=== PATIENT | female | born 1960 | race Hispanic/Latino ===

== ENCOUNTER → 2018-08-23 | Outpatient (CLI) | payer OTHER | END | disposition home or self-care (01) | LOC: RAH 15:18 | PROVIDERS: ATTEND Internal Medicine Nephrology | DX: Z13.6 Encounter for screening for cardiovascular disorders (principal) | CPT/HCPCS: 75571 ==

== ENCOUNTER → 2020-11-26 | Outpatient (CLI) | payer BC, OTHER ==
[~2020-11-26] MED LIST: GADOTERATE MEGLUMINE 10 MMOL/20 ML VIAL IV ONE
== END | disposition home or self-care (01) ==
LOC: RAH 11:19
PROVIDERS: ATTEND Physical Medicine & Rehabilitation
DX: M43.27 Fusion of spine, lumbosacral region (principal); M47.26 Other spondylosis with radiculopathy, lumbar region; R10.2 Pelvic and perineal pain; R60.9 Edema, unspecified
CPT/HCPCS: 72197; A9575

== ENCOUNTER 2023-09-01 14:44 | Emergency (ER) | payer BC, OTHER ==
[~2023-09-01] VITALS: Ht 154.9 cm; Wt 64.9 kg
[2023-09-01 15:23] VITALS: BP 147/106; PULSE 66; RESP 18; O2SAT 98
[2023-09-01] MEDS: MORPHINE 4 MG SYG IVP ONE (16:07)
[2023-09-01] MEDS: 0.9%NACL 1000ML 1,000 ML IV ONE ×2 (16:07→18:38)
[2023-09-01] MEDS: ONDANSETRON 4MG INJ IVP ONE (16:07)
[2023-09-01 16:08] LABS: APPEARANCE,URINE CLOUDY (CLEAR); BILIRUBIN,URINE NEGATIVE (NEGATIVE); COLOR,URINE LIGHT-YELLOW (YELLOW); GLUCOSE, URINE (UA) NEGATIVE (NEGATIVE); KETONES,URINE NEGATIVE (NEGATIVE); LEUKOCYTE ESTERASE ,URINE 250 Leu/uL (NEGATIVE); NITRATE,URINE NEGATIVE (NEGATIVE); OCCULT BLOOD,URINE LARGE (NEGATIVE); PROTEIN,URINE NEGATIVE (NEGATIVE); UROBILINOGEN,URINE 0.2 mg/dL (0.2-1.0)
[2023-09-01 16:09] LABS: ADD UA MICROSCOPIC YES
[2023-09-01 16:12] LABS: BASOPHILS # (AUTO) 0.02 K/uL (0.00-0.20); BASOPHILS % (AUTO) 0.2 % (0.0-5.0); HEMATOCRIT 42.1 % (36-48); IMMATURE GRANULOCYTE ABSOLUTE 0.06 K/uL (0-1); LYMPHOCYTES # (AUTO) 0.7 K/uL (1.0-4.8); LYMPHOCYTES % (AUTO) 7.4 % (21.0-51.0); MEAN CORPUSCULAR HEMOGLOBIN 31.7 pg (27.0-33.0); MEAN CORPUSCULAR HGB CONC 33.7 g/dL (32.0-36.0); MONOCYTES # (AUTO) 0.1 K/uL (0.1-1.0); MONOCYTES % (AUTO) 0.7 % (3.0-13.0); NEUTROPHILS # (AUTO) 8.8 K/uL (1.8-7.7); NEUTROPHILS % (AUTO) 91.1 % (40.0-77.0); PLATELET COUNT (AUTO) 203 K/uL (130-400); RED BLOOD CELL COUNT(AUTO) 4.48 MIL/uL (4.00-5.50); RED CELL DISTRIBUTION WIDTH 13.2 % (11.0-15.5); WHITE BLOOD COUNT (AUTO) 9.7 K/uL (4.8-10.8)
[2023-09-01 16:20] LABS: BACTERIA,URINE RARE /HPF (None Seen); RBC,URINE 51-100 /HPF (0-1); SQUAMOUS EPITHELIAL CELL,UR FEW /HPF (0-2); WBC,URINE 26-50 /HPF (0-1)
[2023-09-01 16:22] LABS: CREATININE 0.9 mg/dL (0.5-1.0); POTASSIUM 3.7 mmol/L (3.5-5.1)
[2023-09-01 16:27] LABS: BILIRUBIN,TOTAL 0.7 mg/dL (0.2-1.0); TOTAL PROTEIN, SERUM 7.4 g/dL (6.0-8.3)
[2023-09-01] MEDS: KETOROLAC 30MG VIAL (30MG/ML) IVP ONE (18:37)
[2023-09-01] MEDS ORDERED: ONDA4TAB10 PO (18:59)
[2023-09-01] MEDS ORDERED: SULF1TAB42 PO (18:59)
[2023-09-01] MEDS: SULFAMETHOX-TMP DS 800/160 TAB PO SCH (19:35)
== END 2023-09-01 19:44 | disposition home or self-care (01) ==
LOC: EDH 14:44
DX: N23 Unspecified renal colic (principal); I10 Essential (primary) hypertension; Z87.440 Personal history of urinary (tract) infections; Z87.442 Personal history of urinary calculi; Z98.890 Other specified postprocedural states; Z88.1 Allergy status to other antibiotic agents; Z88.8 Allergy status to other drugs, medicaments and biological substances
CPT/HCPCS: 99284; 96374; 96361; 96375; 80053; 85025; 87088; 81001; 36415; J7030 ×2; J2405; J2270; J1885

== ENCOUNTER → 2025-02-03 | Outpatient (CLI) | payer OTHER ==
[~2025-02-03] MED LIST changes: -GADOTERATE MEGLUMINE 10 MMOL/20 ML VIAL IV ONE; +IOHEXOL-350 75 ML VIAL IV ONE; +ONDA-243 PO; +SULF1TAB42 PO
--- NOTE | 2025-02-03 19:57 | HMCIMG ---
EXAM: CT Abdomen and Pelvis with Intravenous Contrast CLINICAL HISTORY: 64-year-old female with left lower quadrant pain TECHNIQUE: Axial computed tomography images of the abdomen and pelvis with intravenous contrast. Dose reduction technique was used including one or more of the following: automated exposure control, adjustment of mA and kV according to patient size, and/or iterative reconstruction. CONTRAST: Omniqapue 350, 75 ml COMPARISON: MR pelvis dated 11/26/2020, 11:39 am. FINDINGS: LUNG BASES: Atelectasis. No masses. LIVER: Unremarkable. GALLBLADDER AND BILE DUCTS: Cholecystectomy clips. No ductal dilation. PANCREAS: Unremarkable. SPLEEN: Unremarkable. ADRENAL GLANDS: Unremarkable. KIDNEYS, URETERS, AND BLADDER: Symmetric excretion of contrast in both kidneys. Small left renal pelvis stone. No hydronephrosis. No ureteral or bladder calculi. STOMACH AND BOWEL: No obstruction. No wall thickening. No CT evidence of colitis or acute diverticulitis. APPENDIX: No CT evidence for appendicitis. PERITONEUM: No free fluid. No free air. LYMPH NODES: No lymphadenopathy. REPRODUCTIVE: Hysterectomy changes. Pelvis findings are similar to MR pelvis dated 11/26/2020, 11:39 am. VASCULATURE: No aortic aneurysm. ABDOMINAL WALL AND SOFT TISSUES: Extensive postsurgical changes lower lumbar spine with a moderate to large fluid collection in the midline posterior surgical bed overall measuring 5.6 cm x 6.8 cm x 13.4 cm. BONES: Fixation hardware Lumbar spine seen. No fracture or suspicious osseous abnormality. IMPRESSION: 1. Extensive postsurgical changes in the lower lumbar spine with a moderate to large fluid collection in the midline posterior surgical bed, measuring 5.6 x 6.8 x 13.4 cm, slightly increased to MR pelvis dated 11/26/2020 differentials includer seroma vs less likley abcess formation. 2. Small left renal pelvis stone. /[place]
== END | disposition home or self-care (01) ==
LOC: RAH 10:22
PROVIDERS: ATTEND Internal Medicine Gastroenterology
DX: N20.0 Calculus of kidney (principal); J98.11 Atelectasis; R10.32 Left lower quadrant pain; Z90.710 Acquired absence of both cervix and uterus; Z90.49 Acquired absence of other specified parts of digestive tract
CPT/HCPCS: 74178; Q9967

== ENCOUNTER 2025-04-18 22:21 | Emergency (ER) | payer OTHER ==
[~2025-04-18] VITALS: Ht 167.6 cm; Wt 62.1 kg
--- NOTE | 2025-04-18 22:29 | NUR ---
UA CUP PROVIDED
--- NOTE | 2025-04-18 23:59 | ERN ---
ED Note History of Present Illness Stated Complaint: LEFT EYE SENSITIVITY AND PAIN Chief Complaint: Eye Problems Time Seen by MD: 22:49 Dictation: This is a 64-year-old female who came into the emergency room complaining of photosensitivity of the left eye and transient loss of vision in the left eye. Patient underwent a colonoscopy today by Dr. Cordero and after she woke up her left eye became very sensitive to light and air with pain and she could not see properly. She went home and as symptoms persisted she came into the ER for fu rther evaluation. No trauma it is unclear to the procedural events and the anesthesia details. Patient reported that she was never diagnosed with glaucoma or any eye problems before. Getting headaches off and on but this particular eye pain which is mostly in the left eye and periorbital area is something new to her when she was evaluated in the ER she denied any blurred vision or vision loss. She basically had severe photosensitivity and had close her left eye No fever chills or rigors she did have some watering of the left eye minimal redness of the infra corneal area. Temperature 98.1 pulse 91 respirations 20 blood pressure 155/74 with a pulse oximetry of 98% on room air Chronic medical problems include diabetes mellitus type 2, hypertension, kidney stones and history of neck surgery. patient is on chronic opioids 4 times a day for chronic back pain and neck pain. Allergies: Coded Allergies: cefaclor (Unverified Allergy, Unknown, 09/01/23) levofloxacin (Unverified Allergy, Unknown, 09/01/23) Home Meds Active Scripts Ondansetron (Ondansetron Odt) 4 Mg Tab.rapdis, 4 MG PO TIDP PRN for NAUSEA, #30 TAB 0 Refills Prov:TAJ MEDINA MD 09/01/23 Sulfamethoxazole/Trimethoprim (Bactrim Ds Tablet) 800 Mg-160 Mg Tablet, 1 TAB PO BID for 7 Days, #14 TAB 0 Refills Prov:TAJ MEDINA MD 09/01/23 Past Medical History Past Medical History: Diabetes-Type II, Hypertension, Other Additional Past Medical Hx: KIDNEY STONES Surgical History: Other Surgical History Other: NECK SX, BACK Social History: Negative, Lives with family History: Not Applicable RN Note Reviewed/Agreed w/PFSH: Yes Review of System Dictation Constitutional: Negative for fever,chills, and weight loss Eyes: Negative for injury, pain,redness, and discharge positive for transient vision loss/blurred vision in the left eye, pain in the left eye with some watering ENT: Negative for injury,pain or swelling Cardiovascular: Negative for chest pain, palpitations, and edema Respiratory: Negative for shortness of breath, cough, and wheezing, Abdomen/GI: Negative for abdominal pain, nausea, vomiting, diarrhea, and constipation Back: Negative for injury and pain : Negative for injury, bleeding and discharge MS/Extremity: Negative for injury and deformity Skin: Negative for rash, and discoloration Neuro: Negative for headache, weakness, numbness, tingling, and seizure Psych: Negative for suicide ideation, homicidal ideation, and hallucinations Initial Vital Sign VS Vital Signs Date Time Temp Pulse Resp B/P (MAP) Pulse Ox O2 Delivery O2 Flow Rate FiO2 04/18/25 22:23 98.1 91 20 155/74 98 Room Air 04/19/25 01:35 0 21 Physical Exam Dictation General: awake, alert, NAD Head/Face: Normocephalic, atraumatic Eyes: PERRL, EOMI, vision at baseline mild erythema in the infra corneal area, photosensitivity but pupils are equal and reactive ENT: oral cavity clear, TMs clear, no signs of infection Neck: Trachea midline, supple, no nuchal rigidity Cardiovascular: RRR, normal S1/S2, No MRGs, no JVD Respiratory: CTAB, no respiratory distress, No rales or wheezes Abdomen: Soft, non-tender, non-distended, normal bowel sounds, no guarding or rebound. Skin: Warm, dry, normal turgor, no rash MS/Extremity: Pulses equal, no cyanosis, neurovascular intact, FROM Neuro: COAx4, GCS 15, strength 5/5, CN 2-12 intact, normal cerebellar exam, normal gait, Psych: Normal behavior, mood, and affect normal Extremities-trace edema without any palpable cords, Homans sign is negative Results (Laboratory/Radiology) Labs Reviewed?: Yes CT Scan Comment: REASON: amaurosis Fugax ORDERING PHYSICIAN: SOPHY MARTÍNEZ MD PROCEDURE: HEAD WO - CT HEAD/BRAIN W/O CONTRAST EXAM: CT Head Without IV contrast. CLINICAL HISTORY: Amaurosis Fugax TECHNIQUE: Axial computed tomography images of the head/brain without intravenous contrast. COMPARISON: None provided. FINDINGS: BRAIN: No evidence of acute hemorrhage. No mass lesion. No CT evidence for acute territorial infarct. No midline shift or extra-axial collections. VENTRICLES: No hydrocephalus. ORBITS: The orbits are unremarkable. SINUSES AND MASTOIDS: The paranasal sinuses and mastoid air cells are clear. BONES: No fracture. SOFT TISSUES: Unremarkable. IMPRESSION: No evidence of acute hemorrhage. No mass lesion. No CT evidence for acute territorial infarct. Suggested MRI brain for further evaluation, if clinically indicated. /[place] DICTATED BY: ASHLEY PICAKRD Jr., MD DATE: 04/19/25208 ELECTRONICALLY SIGNED BY: ASHLEY PICKARD Jr., MD DATE: 04/19/25208 ED Course ED Course Orders Procedure Category Date Status Time Ct Head/Brain W/O CT 04/18/25 Resulted Contrast 23:04 Tetracaine Hcl PHA 04/19/25 Complete (Pontocaine 0.5% 02:00 Morphine 4mg Syg PHA 04/19/25 Complete (Morphine 4mg Syg) 02:00 Fluorescein Sodium PHA 04/19/25 Complete (Pacss-L-Kvtqo At) 02:41 Fluorescein Sodium PHA 04/19/25 In Process (Ooalb-M-Wdpps At) 03:00 Methylprednisolone PHA 04/19/25 Complete Succ 125mg (Solu-Medr 03:30 Current Medications Medications (Trade) Dose Ordered Sig/Tonya Route PRN Reason Start Time Stop Time Status Last Admin Dose Admin Fluorescein Sodium (Ipygk-C-Wdgtw At) 1 strip ONCE OP 04/19/25 03:00 05/19/25 02:59 04/19/25 02:55 Fluorescein Sodium (Aaeob-N-Zuapz At) 1 strip STK-MED ONCE .ROUTE 04/19/25 02:41 04/19/25 02:41 DC Methylprednisolone Sodium Succinate (Solu-medROL 125MG) 125 mg ONCE ONCE IM 04/19/25 03:30 04/19/25 03:31 DC 04/19/25 04:08 Morphine Sulfate (morPHINE 4MG SYG) 4 mg ONCE ONCE IM 04/19/25 02:00 04/19/25 02:01 DC 04/19/25 02:44 Tetracaine HCl (Pontocaine 0.5% Ophth Soln) 1 OR 2 DROPS ONCE ONCE OP 04/19/25 02:00 04/19/25 02:01 DC 04/19/25 02:44 Vital Signs Date Time Temp Pulse Resp B/P (MAP) Pulse Ox O2 Delivery O2 Flow Rate FiO2 04/19/25 03:30 65 15 134/58 100 Room Air* 0 21 04/19/25 02:50 80 16 116/52 100 Room Air* 0 21 04/19/25 01:35 98.1 75 17 142/73 100 Room Air* 0 21 04/18/25 22:23 98.1 91 20 155/74 98 Room Air Medical Decision Making MDM Differential diagnosis: Migraine, TIA, retinal artery occlusion, optic neuritis, corneal ulceration, retinal vein thrombosis This is a 64-year-old female who came into the emergency room complaining of photosensitivity of the left eye and transient loss of vision in the left eye. Patient underwent a colonoscopy today by Dr. Cordero and after she woke up her left eye became very sensitive to light and air with pain and she could not see properly. She went home and as symptoms persisted she came into the ER for further evaluation. No trauma it is unclear to the procedural events and the anesthesia details. Patient reported that she was never diagnosed with glaucoma or any eye problems before. Getting headaches off and on but this particular eye pain which is mostly in the left eye and periorbital area is something new to her when she was evaluated in the ER she denied any blurred vision or vision loss. She basically had severe photosensitivity and had close her left eye No fever chills or rigors she did have some watering of the left eye minimal redness of the infra corneal area. NIH 0 GCS 15 Temperature 98.1 pulse 91 respirations 20 blood pressure 155/74 with a pulse oximetry of 98% on room air Chronic medical problems include diabetes mellitus type 2, hypertension, kidney stones and history of neck surgery I updated the patient and requested a CT scan of the head as the initial test 12:[address] scan of the head is essentially unremarkable for any changes. Given the severe photosensitivity and pain in the left eye I was concerned about acute angle glaucoma or corneal abrasion and hence fluorescein staining was done which was negative. Tonometry showed a left eye pressure of 12-13 mmHg. She felt significantly better than when she came in was able to open her eyes and did not have any blurred vision whatsoever. This point I felt that it would be best for her to be evaluated by an coil cleaner and she will be discharged to home to follow up with the an medicare specialist Rationale: Tests considered and ordered secondary to shared decision making include: CT scan of the head, tonometry Previous outside records reviewed: Old ER visits. Risk of complication and/or morbidity or mortality of patient management: None Medications-Per medication reconciliation Need for hospitalization: Patient does not meet criteria for hospitalization. Need for emergency major/minor surgery: No There are no social concerns with this patient. Prescription drug management Prescriptions will include symptomatic care Patient's prior external medical records from other ER visits were reviewed by me as indicated. Prior testing and results from previous visits were reviewed. Prior tests were taken into account with medical decision making and resource utilization, independent historian/historians were used to obtain complete medical history. I independently interpreted the test that were performed, results were reviewed by me and considered findings on radiology if ordered. Medical management and examination interpretation discussions were had by me with other qualified healthcare professionals as indicated for the patient's care. Procedure Alcaine Drops Administered: Yes Eye FB Removal: other Cyclogel 2 Drops Administered: left eye Progress Fluorescein staining of the left eye formed without any abnormalities and there was no evidence of any corneal ulceration under slit-lamp. Additional Procedures: other Progress Tonometry of the left cornea by eye care-multiple measurements 12-13 mmHg pressure Problem List Problem List: (1) Ocular pain, left eye (2) Amaurosis fugax of left eye DX & DISP Disposition: Discharge Departure Impression: Primary Impression: Ocular pain, left eye Additional Impression: Amaurosis fugax of left eye Condition: Stable Additional Instructions: Patient and the caregiver have been informed of all the diagnostic tests and the imaging conducted during the today's visit to the emergency room and has verbalized understanding of the results I have personally reviewed and interpreted all diagnostic exams performed here in the ER today as well as the vital signs documented by the nursing staff. The patient is now being discharged to home and should follow up with the primary care physician or the specialist as directed by the ER staff. Referrals: ANNA ABEL MD (PCP) SOPHY MARTÍNEZ MD Apr 18, 2025 23:59
--- NOTE | 2025-04-19 01:09 | HMCIMG ---
EXAM: CT Head Without IV contrast. CLINICAL HISTORY: Amaurosis Fugax TECHNIQUE: Axial computed tomography images of the head/brain without intravenous contrast. COMPARISON: None provided. FINDINGS: BRAIN: No evidence of acute hemorrhage. No mass lesion. No CT evidence for acute territorial infarct. No midline shift or extra-axial collections. VENTRICLES: No hydrocephalus. ORBITS: The orbits are unremarkable. SINUSES AND MASTOIDS: The paranasal sinuses and mastoid air cells are clear. BONES: No fracture. SOFT TISSUES: Unremarkable. IMPRESSION: No evidence of acute hemorrhage. No mass lesion. No CT evidence for acute territorial infarct. Suggested MRI brain for further evaluation, if clinically indicated. /[place]
--- NOTE | 2025-04-19 01:25 | NUR ---
PT CARE ASSUMED AT THIS TIME
[2025-04-19] MEDS: TETRACAINE HCL 0.5% 4 ML OPHTH SOLN OP ONE (02:44)
[2025-04-19] MEDS: FLUORESCEIN SODIUM 1 STRIP STRIP OP SCH (02:55)
[2025-04-19] MEDS: FLUORESCEIN SODIUM 1 STRIP STRIP ONE (02:55)
[2025-04-19 06:30] VITALS: BP 111/61; PULSE 62; RESP 17; TEMP 98; O2SAT 99
== END 2025-04-19 06:31 | disposition home or self-care (01) ==
LOC: EDH 22:21
DX: G45.3 Amaurosis fugax (principal); H57.12 Ocular pain, left eye; E11.9 Type 2 diabetes mellitus without complications; I10 Essential (primary) hypertension; Z88.1 Allergy status to other antibiotic agents; Z87.442 Personal history of urinary calculi; Z98.890 Other specified postprocedural states
CPT/HCPCS: 99285; 70450; 96372 ×2; J2919; J2270